=== PATIENT | male | born 1960 | race Caucasian/White ===

== ENCOUNTER 2020-10-16 07:32 | Day surgery (SDC) | payer BC, MEDICARE, OTHER ==
[~2020-10-16] VITALS: Ht 172.7 cm; Wt 90.7 kg
[~2020-10-16 07:32] MED LIST: ALBU0.63 NEB; ALPR2TAB2 PO; BACITRACIN 50,000 UNIT in IV NORMAL SALINE 1000ML BAG 1,000 ML IRR ONE; DILT180C2 PO; DULO60CA6 PO; FAMO-63 PO; FLUT1DIS3 IH; FLUT9.9S NS; GEMF600T8 PO; HYDROmorphone 2 MG/ML VIAL IV PRN; IV RINGERS,LACTATED 1000ML 1,000 ML IV SCH; LACT1CAP29 PO; LEVO125T5 PO; LIDOCAINE 1%/EPI 1:100,000 20 ML VIAL. ONE; LORA-169 PO; MEPE50TA PO; MONT10TA49 PO; MORPHINE SULFATE 2 MG/ML VIAL. IV PRN; MULT1CAP15 PO; OLME20TA17 PO; ONDANSETRON PF 4 MG/2 ML VIAL. IV PRN; PROCHLORPERAZINE 10 MG/2 ML VIAL. IV PRN; ZALE10CA PO; dilaudid CONT INF; fentaNYL PF VIAL 100 MCG/2 ML VIAL IV PRN
[2020-10-16] MEDS ORDERED: METH-38 PO (08:19)
[2020-10-16] MEDS ORDERED: SUCCINYLCHOLINE 200 MG/10 ML VIAL. ONE (08:20)
[2020-10-16] MEDS ORDERED: fentaNYL PF VIAL 100 MCG/2 ML VIAL ONE ×2 (08:21→10:29)
[2020-10-16] MEDS ORDERED: ROCURONIUM 50 MG/5 ML VIAL. ONE (08:21)
[2020-10-16 08:44] LABS: PROTHROMBIN TIME PATIENT 13.8 SEC (11.7-14.0)
[2020-10-16] MEDS ORDERED: SEVOFLURANE 61 TO 120 MINUTES. IH ONE (09:28)
[2020-10-16] MEDS ORDERED: ONDANSETRON PF 4 MG/2 ML VIAL. ONE (09:28)
[2020-10-16] MEDS ORDERED: LIDOCAINE 2% PF 5 ML VIAL. ONE (09:28)
[2020-10-16] MEDS ORDERED: DEXAMETHASONE SOD PHOS 20 MG/5 ML VIAL. ONE (09:28)
[2020-10-16] MEDS ORDERED: PROPOFOL 10 MG/ML (20ML) VIAL. IV ONE (09:28)
[2020-10-16] MEDS ORDERED: ePHEDrine PF IN SALINE 50 MG/10 ML SYRINGE. IV ONE (09:28)
--- NOTE | 2020-10-16 10:10 | PDOC ---
BRIEF OPERATIVE NOTE Date: Oct 16, 2020 Pre-Op Diagnosis chronic pain, intrathecal pain pump due for exchange secondary to normal usage Post-Op Diagnosis same Procedure Performed removal and exchange of intrathecal pump apparatus, extraction of medication from old pump with replacement of medication into new pump (4.5mL) Surgeon Saumya Marble Chip Terrazzo Worker none Anesthesia Type: General Blood Loss 5mL Specimens Obtained explant old pump apparatus Findings intact intrathecal tubing, functional new pump Complications none apparent PATRICIO MCKEON MD Oct 16, 2020 10:10
[2020-10-16] MEDS ORDERED: traMADol 50 MG TABLET PO ONE (11:30)
[2020-10-16 11:40] VITALS: BP 118/40
[2020-10-16] MEDS ORDERED: traMADol 50 MG TABLET PO PRN (11:45)
--- NOTE | 2020-10-16 16:29 | OP ---
DATE OF SURGERY: 10/16/2020 SURGEON: Iron Mckeon MD [employer] SUPERVISOR: None. PROCEDURE: Removal and replacement of intrathecal pain pump apparatus from the right abdomen with an aspiration of medication from the old pump and placement of medication in to the new pump. ANESTHESIA: General. COMPLICATIONS: None. INDICATIONS FOR THE PROCEDURE: The patient is a 60-year-old male, presents who has chronic pain and derived significant benefit from an intrathecal pain pump. The pump apparatus in the abdomen is at end of life secondary to normal usage. He presents for removal and replacement of the pump. The pump is a [employer] pump system. DESCRIPTION OF PROCEDURE: After informed consent was obtained, the patient was brought into the operating room. He was placed in the supine position. All pressure points were checked and padded appropriately. The patient had a previous right abdominal incision. This area was prepped and draped in the usual sterile fashion. Ancef was utilized for prophylaxis. Incision was reopened with a 15 blade scalpel. Monopolar electrocautery was utilized to dissect the underlying soft tissues to the pump apparatus. Pump apparatus was gently freed from the scar tissue pocket. The tubing was noted to be intact with an intact connection. An appropriate size syringe was utilized to access the port. The superior aspect of the pump to draw approximately 1 mm fluid through primary tubing. Once this was complete, the pump was disconnected from the tubing and on the backtable, 4.5 mL of medication was removed from the old pump. This was subsequently placed into the new pump apparatus without difficulty. New pump apparatus once ready was reconnected to the tubing which was noted to have brisk flow of fluid and widely patent. This was connected according to childhood development teacher's specification and no leaks, kinks, or cracks were noted in the tubing and the connection appeared to be non-leaking and fully attached. The new pump was placed into the prior scar tissue pocket in the same orientation as the old pump. It was tacked down with silk suture to the posterior wall of the capsule. The wound was generously irrigated with antibiotic irrigation prior to final closure. The capsule was then reapproximated with 0 Vicryl in a simple interrupted fashion. The subcutaneous tissues reapproximated with 2-0 Vicryl in interrupted inverted fashion and the skin was reapproximated with 4-0 Vicryl in a running subcuticular fashion. Mastisol and Steri-Strips were applied. Wound was dressed with Telfa, 4 x 4 and Tegaderm. At the end of procedure, all needle and sponge counts were correct and the patient was extubated in the operating room and taken to recovery in stable condition. There were no intraprocedural complications apparent. IRON MCKEON MD DR: ANDREW/tisha JOB#: [id number] / [id number] NILSON
[2020-10-17 01:08] LABS: HEMOGLOBIN A1C 5.3 % (4.8-5.6)
== END 2020-10-16 12:38 | disposition home or self-care (01) ==
LOC: SURG 07:32
PROVIDERS: ATTEND Neurological Surgery
DX: G89.21 Chronic pain due to trauma (principal); M54.5 Low back pain; I10 Essential (primary) hypertension; K21.9 Gastro-esophageal reflux disease without esophagitis; M19.90 Unspecified osteoarthritis, unspecified site; E66.9 Obesity, unspecified; G47.30 Sleep apnea, unspecified; E03.9 Hypothyroidism, unspecified; F41.9 Anxiety disorder, unspecified; F32.9 Major depressive disorder, single episode, unspecified; J45.909 Unspecified asthma, uncomplicated; Z79.899 Other long term (current) drug therapy; Z98.890 Other specified postprocedural states; Z87.891 Personal history of nicotine dependence; Z88.1 Allergy status to other antibiotic agents; Z88.8 Allergy status to other drugs, medicaments and biological substances; Z85.828 Personal history of other malignant neoplasm of skin
CPT/HCPCS: 36415; 62362; 83036; 85610; 85730; C1772; C1787; J0330; J0690; J1100; J2405; J2704; J3010; J3490; J7030; J7120

== ENCOUNTER → 2021-03-12 | Outpatient (CLI) | payer OTHER ==
[~2021-03-12] MED LIST changes: -BACITRACIN 50,000 UNIT in IV NORMAL SALINE 1000ML BAG 1,000 ML IRR ONE; +GEMF600T20 PO; -GEMF600T8 PO; -HYDROmorphone 2 MG/ML VIAL IV PRN; -IV RINGERS,LACTATED 1000ML 1,000 ML IV SCH; -LIDOCAINE 1%/EPI 1:100,000 20 ML VIAL. ONE; +METH-38 PO; -MORPHINE SULFATE 2 MG/ML VIAL. IV PRN; +ONDA4TAB7 PO; -ONDANSETRON PF 4 MG/2 ML VIAL. IV PRN; -PROCHLORPERAZINE 10 MG/2 ML VIAL. IV PRN; +TEST200V3 IM; -fentaNYL PF VIAL 100 MCG/2 ML VIAL IV PRN
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
== END | disposition home or self-care (01) ==
LOC: PNCL 10:19
PROVIDERS: ATTEND Anesthesiology
DX: M54.2 Cervicalgia (principal); M54.5 Low back pain; I10 Essential (primary) hypertension; G47.30 Sleep apnea, unspecified; M19.90 Unspecified osteoarthritis, unspecified site; J45.909 Unspecified asthma, uncomplicated; K21.9 Gastro-esophageal reflux disease without esophagitis; E03.9 Hypothyroidism, unspecified; F41.9 Anxiety disorder, unspecified; F32.9 Major depressive disorder, single episode, unspecified; Z85.828 Personal history of other malignant neoplasm of skin; Z79.899 Other long term (current) drug therapy; Z98.890 Other specified postprocedural states; Z88.1 Allergy status to other antibiotic agents; Z88.8 Allergy status to other drugs, medicaments and biological substances
CPT/HCPCS: 99205; G0463

== ENCOUNTER → 2021-05-29 | Outpatient (CLI) | payer BC, MEDICARE, OTHER ==
[2021-05-28 15:00] VITALS: BP 128/80
[~2021-05-29] MED LIST changes: +AMOX1TAB61 PO; +DULO30CA2 PO; +KETO10TA PO; -LACT1CAP29 PO; +LACT1CAP37 PO
--- NOTE | 2021-05-29 10:27 | PDOC ---
Progress Note - Pain Clinic Date of Service: DOS: DATE: 05/29/21 TIME: 10:21 Diagnosis: Dx: Cervical radiculopathy with cervical degenerative disease and cervical postlaminectomy syndrome Lumbar radiculopathy with lumbar degenerative disease lumbar spinal stenosis History or Present Illness: HPI: 61-year-old male returns for follow-up last seen March 12, 2021 patient has had some unusual potential side effects and is suspicious that his intrathecal pump is causing these as his last medication refill hydromorphone was done at outside facility and he reports that the medicine was sent from a [place] pharmacy and is been suspicious of it since that time also since last refill he has had flushing and erythematous changes on the chest and torso as well as the upper extremities which were not present by his report prior to last medication change. We discussed this with he and his spouse over the phone several weeks ago and decided to have the medication changed with a local pharmacy that we had good long relationship with and will change the medication from the pump today. Still hydromorphone 1 mg/mL at the same rate without changing any other factors with his pump or PTM but just to get a known medication from a trusted source exchanged for the pump. Patient reports of having headaches also pain base of neck and shoulders upper extremities and radicular fashion also low back pain bilateral lower extremity pain. Patient recently had his cholecystectomy performed which was yesterday and now presents as an outpatient for pump eval uation and exchange with refill and reprogramming. Physical Exam: VS: Blood pressure is 145/93 pulse 87 respirations 18 temperature 98.6 degrees Fahrenheit 5 feet 10 inches weight is 206 pounds PE: PHYSICAL EXAMINATION: GENERAL: The patient is awake, alert, oriented, appropriate, very pleasant demeanor, patient Kumpe by his spouse HEENT: Shows normocephalic, atraumatic. Extraocular movements are intact and symmetrical. Oral cavity: Mucous membranes moist and pink. Dentition is intact. NECK: Shows anterior throat supple without palpable lymphadenopathy noted. Swallow reflex symmetrical. CHEST: Shows normal on inspection. Breath sounds are clear bilaterally, distant but no rales or rhonchi. HEART: Shows S1, S2 clear. No murmurs auscultated. ABDOMEN: Soft, nontender, nondistended, obese with easily palpable intrathecal pump in the right lower quadrant with well-healed surgical scar noted. Patient has bandages from recent laparoscopic cholecystectomy sites are clean and dry without erythema and without drainage. No palpable organomegaly is noted. No rebound or guarding demonstrated. BACK: Shows spine grossly in the midline. Normal-appearing cervical lordotic curvature. Cervical paraspinous muscles show symmetrical inspection with palpation shows mild tenderness inferior aspect the cervical paraspinous musculature as well as into the superior medial trapezius bilaterally rotation motion shows full rotation of the cervical spine both laterally as well as full extension full forward flexion without significant increase in pain. There is slightly increased thoracic kyphosis, some minor flattening of the lumbar lordotic curvature. Lumbar paraspinous muscles show symmetrical on inspection, on palpation shows some moderate tenderness diffusely throughout the upper, middle and lower distribution of the paraspinous muscles without specific trigger points, without radiation of pain. The patient has good rotational motion of the lumbar spine, both laterally as well as extension and flexion without significant difficulty. EXTREMITIES: Lower extremities show deep tendon reflexes 1+ in the patellar and tendo calcaneus tendons. Motor exam is 4 on a scale of 5 with right dorsiflexion, extension, quadriceps and hamstring flexion and 4/5 on the left. Peripheral pulses are 1+ posterior tibial. No peripheral edema is noted bilaterally. Lower extremities are warm and dry to touch, equal in color and appearance. Upper extremity show deep tendon reflexes 2+ in the bicep and triceps tendons, motor exam strong with concrete puddler strength rated 5 out of 5 as is bicep and tricep flexion. Peripheral pulses are 2+ radial. Shoulder shrug strong and intact without loss of strength on resistance bilaterally. SKIN: Shows warm and dry, good turgor. No edema. No sores, rashes or bruising throughout. Procedure: Procedure: Options were discussed with the patient patient spouse with coming him his visit today. We will proceed with intrathecal pump refill and exchange of medication hydromorphone 1 mg/mL. 7 cc of old medication was withdrawn from the pump and 20 cc new medication was replaced. Patient will follow up in approximately 2 weeks with progress note at that time as patient lives a great distance from the office was asked to call with a progress note in about 2 weeks. Patient also having significant radicular symptoms from the cervical spine and we discussed possible cervical epidural steroid injection in the future as well. Patient will allow time for the recent surgical procedure to heal and then reconsider this as well. Medication Injected: Med Injected: Under sterile prep and drape patient's abdomen was prepped over the intrathecal pump, using a 22-gauge noncutting [employer]tronic brand needle the pump was entered without difficulty. Aspiration showed removal of 7 cc of old medication which was discarded. 20 cc of new medication containing hydromorphone 1 mg/mL was then replaced. Needle was withdrawn and sterile bandage was applied;pump was then reprogrammed for volume as well as alarm settings and PTM reprogrammed as well. Patient tolerated procedure well had no complications. Condition at Discharge: Condition at Discharge: Condition at discharge stable, patient alert the procedure well and had no complications. ZAINA LEONG MD May 29, 2021 10:27
--- NOTE | 2021-05-29 10:28 | PDOC4 ---
Procedure Note: Procedure Note: Patient was consented for intrathecal pump refill and reprogramming. Risk were discussed including but not limited to bleeding infection possibility of extravasation of medication and resuscitative measures necessary as well as poor results regarding pain control. Patient understands wished to proceed. Under sterile prep and drape patient's abdomen was prepped over the intrathecal pump, using a 22-gauge noncutting [employer] brand needle the pump was entered without difficulty. Aspiration showed removal of 7 cc of old medication which was discarded. 20 cc of new medication containing hydromorphone 1 mg/mL was then replaced. Needle was withdrawn and sterile bandage was applied;pump was then reprogrammed for volume as well as alarm settings and PTM reprogrammed as well. Patient tolerated procedure well had no complications. ZAINA LEONG MD May 29, 2021 10:28
== END | disposition home or self-care (01) ==
LOC: PNCL 09:08
PROVIDERS: ATTEND Anesthesiology
DX: M50.10 Cervical disc disorder with radiculopathy, unspecified cervical region (principal); M96.1 Postlaminectomy syndrome, not elsewhere classified; M48.061 Spinal stenosis, lumbar region without neurogenic claudication; M51.16 Intervertebral disc disorders with radiculopathy, lumbar region; J45.909 Unspecified asthma, uncomplicated; G47.30 Sleep apnea, unspecified; M19.90 Unspecified osteoarthritis, unspecified site; F41.9 Anxiety disorder, unspecified; F32.9 Major depressive disorder, single episode, unspecified; I10 Essential (primary) hypertension; E03.9 Hypothyroidism, unspecified; Z79.899 Other long term (current) drug therapy; Z98.890 Other specified postprocedural states; Z85.828 Personal history of other malignant neoplasm of skin; Z88.6 Allergy status to analgesic agent; Z88.8 Allergy status to other drugs, medicaments and biological substances
CPT/HCPCS: 95991

== ENCOUNTER → 2021-11-11 | Outpatient (CLI) | payer OTHER ==
[2021-05-28 15:00] VITALS: BP 128/80
[~2021-11-11] MED LIST changes: -DULO60CA6 PO; +DULO60CA7 PO
--- NOTE | 2021-11-11 15:42 | PDOC ---
Progress Note - Pain Clinic Date of Service: DOS: DATE: 11/11/21 TIME: 15:36 Diagnosis: Dx: Cervical radiculopathy with cervical degenerative disease and cervical postlaminectomy syndrome Lumbar radiculopathy lumbar degenerative disease lumbar spinal stenosis Intrathecal pump therapy History or Present Illness: HPI: 61-year-old male returns for follow-up status post intrathecal pump management with hydromorphone. Patient reports about 60% improvement overall but still significant pain in the low back and mid back patient reports also pain in the base of the neck and shoulders somewhat worse on the right than the left. Patient reports is a 9 on scale 10 is worse over the past week 6 on average 5 its least is a [address] aching sharp and dull tight and shooting in the base the neck and shoulders more on the right than the left tingling burning in the mid and low back as well can be constant severe in the neck and shoulders which is his chief complaint. Patient reports no loss of motor function no bowel or bladder incontinence but significant fatigability in the right upper extremity with repetitive motions reaching over his head repetitive lifting or bending and reaching forward with the upper extremities. Patient reports also low back pain but no significant side effects with the intrathecal medication currently. Patient reports no bowel or bladder incontinence. Physical Exam: VS: Blood pressure is 136/68 pulse 76 respirations 18 temperature 98.7 F height 5 feet 10 inches weight is 203 pounds PE: PHYSICAL EXAMINATION: GENERAL: The patient is awake, alert, oriented, appropriate, very [facility], patient [place] by his HEENT: Shows normocephalic, atraumatic. Extraocular movements are intact and symmetrical. Oral cavity: Mucous membranes moist and pink. Dentition is intact. NECK: Shows anterior throat supple without palpable lymphadenopathy noted. Swallow reflex symmetrical. CHEST: Shows normal on inspection. Breath sounds are clear bilaterally, no rales or rhonchi. HEART: Shows S1, S2 clear. No murmurs auscultated. ABDOMEN: Soft, nontender, nondistended, obese. No palpable organomegaly is noted. Easily palpable intrathecal pump is noted the right lower quadrant with well-healed surgical scarring noted. BACK: Shows spine grossly in the midline. Normal-appearing cervical lordotic curvature. Cervical paraspinous muscles show symmetrical inspection palpation is diffusely tender throughout the upper middle lower decrease the paraspinous muscles bilaterally but without significant radiation without trigger points. Patient with full rotation motion cervical spine with lateral as well as extension flexion without significant difficulty as well. There is slightly increased thoracic kyphosis, some flattening of the lumbar lordotic curvature. Lumbar paraspinous muscles show symmetrical on inspection, on palpation shows some moderate tenderness diffusely throughout the upper, middle and lower distribution of the paraspinous muscles without specific trigger points, without radiation of pain. The patient has good rotational motion of the lumbar spine, both laterally as well as extension and flexion without significant difficulty. No tenderness over the spinous processes, sacrum or sacroiliac regions. EXTREMITIES: Lower extremities show deep tendon reflexes 1+ in the patellar and tendo calcaneus tendons. Motor exam is 4 on a scale of 5 with right dorsiflexion, extension, quadriceps and hamstring flexion and 4/5 on the left. Peripheral pulses are 1+ posterior tibial. No peripheral edema is noted bilaterally. Lower extremities are warm and dry to touch, equal in color and appearance. Upper extremity show deep tendon reflexes 2+ in the bicep triceps tendons, motor exam strong with dock operations supervisor strength rated 5 out of 5 as is bicep and tricep flexion. Shoulder shrug strong intact without loss of strength on resistance as is abduction of the shoulder 90 degrees bilaterally. SKIN: Shows warm and dry, good turgor. No edema. No sores, rashes or bruising throughout. Procedure: Procedure: Options discussed with patient. Patient's old chart was reviewed his current medication regimen updated current review of systems updated today as well. We will analyze patient's intrathecal pump and make adjustments to the pump rate as well as the PTM setting today to deliver less medicine per bolus from PTM as well as over a longer period of time from 0.0020 g 2.0010 mg and instead of over 2 minutes time, we will lengthen that to a formatted bolus time. Patient was given instruction as well as covered side effects again to be aware of with medication and follow-up in approximately 1 week as scheduled. Medication Injected: Med Injected: Intrathecal pump analysis and reprogramming Condition at Discharge: Condition at Discharge: Condition at discharge is stable. ZAINA LEONG MD Nov 11, 2021 15:42
== END | disposition home or self-care (01) ==
LOC: PNCL 13:39
PROVIDERS: ATTEND Anesthesiology
DX: M50.10 Cervical disc disorder with radiculopathy, unspecified cervical region (principal); M96.1 Postlaminectomy syndrome, not elsewhere classified; M51.16 Intervertebral disc disorders with radiculopathy, lumbar region; M48.061 Spinal stenosis, lumbar region without neurogenic claudication; I10 Essential (primary) hypertension; J45.909 Unspecified asthma, uncomplicated; G47.30 Sleep apnea, unspecified; M19.90 Unspecified osteoarthritis, unspecified site; E03.9 Hypothyroidism, unspecified; F41.9 Anxiety disorder, unspecified; F32.9 Major depressive disorder, single episode, unspecified; Z85.828 Personal history of other malignant neoplasm of skin; Z79.899 Other long term (current) drug therapy; Z98.890 Other specified postprocedural states; Z88.6 Allergy status to analgesic agent; Z88.8 Allergy status to other drugs, medicaments and biological substances
CPT/HCPCS: 99212; G0463

== ENCOUNTER → 2021-11-18 | Outpatient (CLI) | payer OTHER ==
[2021-05-28 15:00] VITALS: BP 128/80
[~2021-11-18] MED LIST changes: +IOHEXOL 180 MG/ML 10 ML VIAL. ONE; +methylPREDNISolone ACETATE 40 MG/ML VIAL. ONE; +methylPREDNISolone ACETATE 80 MG/ML VIAL. ONE
--- NOTE | 2021-11-18 14:18 | PDOC ---
Progress Note - Pain Clinic Date of Service: DOS: DATE: 11/18/21 TIME: 14:15 Diagnosis: Dx: Cervical radiculopathy with cervical degenerative disc disease and cervical postlaminectomy syndrome Lumbar radiculopathy with lumbar degenerative disc disease and lumbar spinal stenosis History or Present Illness: HPI: 61-year-old male returns for follow-up status post intrathecal pump reprogramming and PTM reprogramming on November 11 patient has significant pain base of neck and shoulders left greater than right at this time with pain with repetitive motions reaching over his head with his hands reaching forward weightbearing disturbing sleep significantly patient reports of pain in the base of neck and shoulders left side of the head rating to the arms the bilateral as well as in the superior chest and upper back mid back aching sharp and shooting tingling burning stabbing can be constant severe with activity. Patient reports it is a 9 on scale of 10 is worse over the past week 8 on average 6 at its least is 8 today. Patient reports no new motor or sensory deficits and is doing better after adjustment of his intrathecal pump and PTM settings. Physical Exam: VS: Blood pressure is 102/62 pulse 78 respirations 18 temperature 98.0 F height is 5 foot 10 inches weight is 203 pounds PE: PHYSICAL EXAMINATION: GENERAL: The patient is awake, alert, oriented, appropriate, very pleasant in demeanor, patient Kum[place] by his spouse HEENT: Shows normocephalic, atraumatic. Extraocular movements are intact and symmetrical. Oral cavity: Mucous membranes moist and pink. Dentition is intact. NECK: Shows anterior throat supple without palpable lymphadenopathy noted. Swallow reflex symmetrical. CHEST: Shows normal on inspection. Breath sounds are clear bilaterally, distant but no rales or. HEART: Shows S1, S2 clear. No murmurs auscultated. ABDOMEN: Soft, nontender, nondistended. No palpable organomegaly is noted. BACK: Shows spine grossly in the midline. Normal-appearing cervical lordotic c urvature. Cervical paraspinous muscles show symmetrical inspection, on palpation some moderate tenderness diffusely throughout the upper middle lower decrease the paraspinous muscle slightly more on the left than the right as well as into the superior medial trapezius more tender on the left than the right as well but without trigger points or atrophy hypertrophy or asymmetry. Patient does show good full rotation motion cervical spine both laterally as well as extension flexion all slightly guarded does complete full rotation. There is increased thoracic kyphosis, some flattening of the lumbar lordotic curvature. Lumbar paraspinous muscles show symmetrical on inspection, on palpation shows some moderate tenderness diffusely throughout the upper, middle and lower distribution of the paraspinous muscles, but without specific trigger points, without radiation of pain. The patient has good rotational motion of the lumbar spine, both laterally as well as extension and flexion without significant difficulty. No tenderness over the spinous processes, sacrum or sacroiliac regions. EXTREMITIES: Lower extremities show deep tendon reflexes 1+ in the patellar and tendo calcaneus tendons. Motor exam is 4 on a scale of 5 with right dorsiflexion, extension, quadriceps and hamstring flexion and 4/5 on the left. Peripheral pulses are 1+ posterior tibial. No peripheral edema is noted bilaterally. Lower extremities are warm and dry to touch, equal in color and appearance. Upper extremity show deep tendon reflexes 2+ in the bicep tricep tendons, motor exam strong with 5 5 claims representative strength bicep and tricep flexion peripheral pulses are 2+ radial. SKIN: Shows warm and dry, good turgor. No edema. No sores, rashes or bruising throughout. Procedure: Procedure: Options were discussed with patient. Patient's old chart was reviewed as his current medication regimen updated current review systems updated today as well. We will proceed with a cervical epidural steroid injection today with fluorosco pic guidance. Risks were discussed including but not limited to: Bleeding, infection, possibility of epidural hematoma and subsequent neurological compromise, dural puncture, headaches, spinal cord and/or nerve damage, side effects of steroid medication, and poor results regarding pain control. Patient understands and wished to proceed. Patient will return to clinic in approximate 2 weeks for follow-up, was counseled as return appointment, typical, and side effect to be aware of. Medication Injected: Med Injected: Procedure cervical epidural steroid injection at the C6-7 level, using local anesthetic under sterile prep and drape using C-arm fluoroscopic guidance under local anesthesia medications injected ;120 mg Depo-Medrol +5 mL normal saline and 2 mL contrast; condition at discharge is stable patient tolerated procedure well. and had no complications Condition at Discharge: Condition at Discharge: Condition at discharge stable, patient tolerated the procedure well and had no complications. ZAINA LEONG MD Nov 18, 2021 14:18
--- NOTE | 2021-11-18 14:19 | PDOC4 ---
Procedure Note: ICD 10 Code: ICD 10 Code: M54.12 M50.30 722.81 Procedure Note: Patient was consented for cervical epidural steroid injection with fluoroscopic guidance. Risks were discussed including but not limited to: Bleeding, infection, possibility of epidural hematoma and subsequent neurological compromise, dural puncture, headaches, spinal cord and/or nerve damage, side effects of steroid medication, and poor results regarding pain control. Patient understands and wished to proceed. Procedure cervical epidural steroid injection at the C6-7 level, using local a nesthetic under sterile prep and drape using C-arm fluoroscopic guidance under local anesthesia medications injected ;120 mg Depo-Medrol +5 mL normal saline and 2 mL contrast; condition at discharge is stable patient tolerated procedure well. and had no complications ZAINA LEONG MD Nov 18, 2021 14:19
== END | disposition home or self-care (01) ==
LOC: PNCL 12:55
PROVIDERS: ATTEND Anesthesiology
DX: M50.10 Cervical disc disorder with radiculopathy, unspecified cervical region (principal); M96.1 Postlaminectomy syndrome, not elsewhere classified; M51.16 Intervertebral disc disorders with radiculopathy, lumbar region; M48.061 Spinal stenosis, lumbar region without neurogenic claudication; I10 Essential (primary) hypertension; J45.909 Unspecified asthma, uncomplicated; G47.30 Sleep apnea, unspecified; E03.9 Hypothyroidism, unspecified; M19.90 Unspecified osteoarthritis, unspecified site; F41.9 Anxiety disorder, unspecified; F32.9 Major depressive disorder, single episode, unspecified; Z85.828 Personal history of other malignant neoplasm of skin; Z79.899 Other long term (current) drug therapy; Z98.890 Other specified postprocedural states; Z88.6 Allergy status to analgesic agent; Z88.8 Allergy status to other drugs, medicaments and biological substances
CPT/HCPCS: 62321; J1030; J1040; Q9965

== ENCOUNTER → 2021-12-23 | Outpatient (CLI) | payer OTHER ==
[2021-05-28 15:00] VITALS: BP 128/80
[~2021-12-23] MED LIST changes: +BUPIVACAINE MPF 0.25% 10 ML VIAL. ONE; -IOHEXOL 180 MG/ML 10 ML VIAL. ONE; -methylPREDNISolone ACETATE 40 MG/ML VIAL. ONE
--- NOTE | 2021-12-23 13:01 | PDOC ---
Progress Note - Pain Clinic Date of Service: DOS: DATE: 12/23/21 TIME: 12:56 Diagnosis: Dx: Cervical radiculopathy with cervical degenerative disease and cervical postlaminectomy syndrome Lumbar radiculopathy with lumbar degenerative disease lumbar spinal stenosis Myofascial pain History or Present Illness: HPI: 61-year-old male returns for follow-up status post cervical epidural steroid injection November 18 patient did very well about 75% improvement in the neck and shoulder pain his chief complaint today however is low back and right sided posterior hip pain as well patient reports is disturbing his sleep is getting worse over time rated as a 10 on scale 10 is worst over the past week 9 on average 7 its least is a 9 today patient ports sharp and shooting stabbing in the right posterior hip and low back with some radiating pain in the leg occasionally on the lateral thigh mostly in the low back itself worse with standing walking changing positions and again is waking up sleep frequently. Patient reports no bowel or bladder incontinence. We also discussed his intrathecal pump as patient is feeling that he is getting a "red man syndrome" from the medication he would like to eventually wean down off of that and to have the pump removed. We had discussed this on a previous visit as well and also will discuss spinal cord stimulator trial which we will get him authorized for as we are weaning down the intrathecal pump. Physical Exam: VS: Blood pressure is 110/56 pulse 96 respirations 18 temperature 97.0 F height is 5 foot 10 inches weight is 207 pounds PE: PHYSICAL EXAMINATION: GENERAL: The patient is awake, alert, oriented, appropriate, very pleasant demeanor, patient accompanied by his spouse HEENT: Shows normocephalic, atraumatic. Extraocular movements are intact and symmetrical. Oral cavity: Mucous membranes moist and pink. Dentition is int act. NECK: Shows anterior throat supple without palpable lymphadenopathy noted. Swallow reflex symmetrical. CHEST: Shows normal on inspection. Breath sounds are clear bilaterally, distant but no rales or rhonchi auscultated. HEART: Shows S1, S2 clear. No murmurs auscultated. ABDOMEN: Soft, nontender, nondistended. No palpable organomegaly is noted. No rebound or guarding demonstrated. BACK: Shows spine grossly in the midline. Normal-appearing cervical lordotic curvature. There is slightly increased thoracic kyphosis, some minor flattening of the lumbar lordotic curvature. Lumbar paraspinous muscles show symmetrical on inspection, on palpation shows some moderate tenderness diffusely throughout the upper, middle and lower distribution of the paraspinous muscles but significant tenderness in the right lower thoracic paraspinous posterior right lumbar paraspinous muscular and right gluteus and the superior aspect as compared to the left with multiple regions of trigger point very firm ropelike musculature on the right side only very tender to palpation but without specific radiation. The patient has good rotational motion of the lumbar spine, both laterally as well as extension and flexion without significant difficulty. EXTREMITIES: Lower extremities show deep tendon reflexes 1+ in the patellar and tendo calcaneus tendons. Motor exam is 4 on a scale of 5 with right dorsiflexion, extension, quadriceps and hamstring flexion and 4/5 on the left. Peripheral pulses are 1+ posterior tibial. No peripheral edema is noted bilaterally. Lower extremities are warm and dry to touch, equal in color and appearance. Upper extremity show deep tendon reflexes 2+ in the bicep tricep tendons, motor exam is 5 out of 5 with biceps triceps and energy efficient site manager strength bilaterally. SKIN: Shows warm and dry, good turgor. No edema. No sores, rashes or bruising throughout. Procedure: Procedure: Options were discussed with patient. Patient chart was reviewed his current medication regimen updated current review of systems updated today as well. We will proceed with trigger point injections of the right thoracic paraspinous posterior right lumbar paraspinous muscles or right gluteus musculature with risk discussed including but not limited to bleeding infection possibility of intravascular injection and sequelae spread of local anesthetic and numbness side effects of steroid medication and poor results regarding pain control. Patient understands wished to proceed. Patient will return to clinic in [facility] 2 weeks for follow-up, we will discuss further options of decreasing intrathecal pump as well as spinal cord stimulation. Medication Injected: Med Injected: Patient in prone position under sterile prep and drape patient's right thoracic paraspinous posterior right lumbar paraspinous posterior right gluteus musculature triggerpoints were identified using 25-gauge needle after negative aspiration each injection total of 6 cc 0.25% bupivacaine and total of 40 mg Depo-Medrol was used. Patient tolerated the procedure well and had no complications. Condition at Discharge: Condition at Discharge: Condition at discharge is stable, patient tolerated the procedure well and had no complications. ZAINA LEONG MD Dec 23, 2021 13:01
--- NOTE | 2021-12-23 13:02 | PDOC4 ---
Procedure Note: ICD 10 Code: ICD 10 Code: M60.89 Procedure Note: Patient was consented for trigger point injections. Risk were discussed including but not limited to bleeding infection possibility of intravascular injection sequelae spread local anesthetic numbness side effects of steroid medication portals regarding pain control. Patient understands and wished to proceed. Patient in prone position under sterile prep and drape patient's right thoracic paraspinous posterior right lumbar paraspinous posterior right gluteus musculature triggerpoints were identified using 25-gauge needle after negative aspiration each injection total of 6 cc 0.25% bupivacaine and total of 40 mg Depo-Medrol was used. Patient tolerated the procedure well and had no complications. ZAINA LEONG MD Dec 23, 2021 13:02
== END | disposition home or self-care (01) ==
LOC: PNCL 11:27
PROVIDERS: ATTEND Anesthesiology
DX: M50.10 Cervical disc disorder with radiculopathy, unspecified cervical region (principal); M79.18 Myalgia, other site; M96.1 Postlaminectomy syndrome, not elsewhere classified; M51.16 Intervertebral disc disorders with radiculopathy, lumbar region; M48.061 Spinal stenosis, lumbar region without neurogenic claudication; I10 Essential (primary) hypertension; J45.909 Unspecified asthma, uncomplicated; G47.30 Sleep apnea, unspecified; E03.9 Hypothyroidism, unspecified; F41.9 Anxiety disorder, unspecified; F32.9 Major depressive disorder, single episode, unspecified; Z85.828 Personal history of other malignant neoplasm of skin; Z79.899 Other long term (current) drug therapy; Z98.890 Other specified postprocedural states; Z88.8 Allergy status to other drugs, medicaments and biological substances
CPT/HCPCS: 20553; J1040; J3490

== ENCOUNTER → 2022-01-06 | Outpatient (CLI) | payer OTHER ==
[2021-05-28 15:00] VITALS: BP 128/80
[~2022-01-06] MED LIST changes: +AMLO10TA4 PO; -BUPIVACAINE MPF 0.25% 10 ML VIAL. ONE; +BUTA1TAB23 PO; +DULO30CA44 PO; +IOHEXOL 180 MG/ML 10 ML VIAL. ONE
--- NOTE | 2022-01-06 12:24 | PDOC ---
Progress Note - Pain Clinic Date of Service: DOS: DATE: 01/06/22 TIME: 12:18 Diagnosis: Dx: Cervical radiculopathy with cervical degenerative disease and cervical postlaminectomy syndrome Lumbar radiculopathy with lumbar degenerative disc disease and lumbar spinal stenosis Myofascial pain History or Present Illness: HPI: 61-year-old male returns for follow-up status post intrathecal pump adjustment December 23, 2021 patient reports that he is doing better but is noticing some back pain which is more noticeable now after the pump was adjusted downward by approximately 10% patient currently running at a rate of 5.00 to 3 mg/day hydromorphone. Patient status post trigger point injections of the bilateral trapezius lumbar and gluteus musculature on his last visit with near 1% im provement for 2 weeks by patient's report. Patient reports his chief plan today is neck and bilateral shoulder and upper extremity pain especially on the left side. Patient reports has become more noticeable with radiating pain into the upper extremities shoulder as well as arm in the forearm on the left without motor loss but significant fatigability with repetitive motion. Patient reports a 7 on scale 10 is worse over the past week 5 on average 4 at its least and, is a 5 today. The patient describes the pain as aching sharp shooting, burning stabbing and cramping as well as shooting in the upper extremity especially on the left side. Patient reports no loss of motor function with significant fatigability with the pain and with repetitive motions especially on the left once again. Physical Exam: VS: Blood pressure is 102/66 pulse 75 respirations 18 temperature 98.2 F weight is 206 pounds. PE: PHYSICAL EXAMINATION: GENERAL: The patient is awake, alert, oriented, appropriate, very pleasant in [facility], patient Kumpe by his . HEENT: Shows normocephalic, atraumatic. Extraocular movements are intact and symmetrical. Oral cavity: Mucous membranes moist and pink. Dentition is intact. NECK: Shows anterior throat supple without palpable lymphadenopathy noted. Swallow reflex symmetrical. CHEST: Shows normal on inspection. Breath sounds are clear bilaterally, distant but no rales or rhonchi auscultated. HEART: Shows S1, S2 clear. No murmurs auscultated. ABDOMEN: Soft, nontender, nondistended. No palpable organomegaly is noted. BACK: Shows spine grossly in the midline. Normal-appearing cervical lordotic curvature. There is mildly increased thoracic kyphosis, some moderate flattening of the lumbar lordotic curvature. Lumbar paraspinous muscles show symmetrical on inspection, on palpation shows some moderate tenderness diffusely throughout the upper, middle and lower distribution of the paraspinous muscles, without radiation of pain. The patient has good rotational motion of the lumbar spine, both laterally as well as extension and flexion without significant difficulty. EXTREMITIES: Lower extremities show deep tendon reflexes 1 in the patellar and tendo calcaneus tendons. Motor exam is 4 on a scale of 5 with right dorsiflexion, extension, quadriceps and hamstring flexion and 4/5 on the left. Peripheral pulses are 1+ posterior tibial. No peripheral edema is noted bilaterally. Lower extremities are warm and dry to touch, equal in color and appearance. Upper extremities show deep tendon reflexes 2+ in the bicep tricep tendons, motor exam is strong with garment inspector strength rated 5 out of 5 as is bicep and tricep flexion bilaterally. Shoulder shrug is strong and intact without loss of strength on resistance bilaterally. SKIN: Shows warm and dry, good turgor. No edema. No sores, rashes or bruising throughout. Procedure: Procedure: Options were discussed with the patient. Patient's old chart was reviewed his current medication regimen updated current review of systems updated today as well. We will proceed with a cervical epidural steroid injection today with fluoroscopic guidance. Risks were discussed including but not limited to: Bleeding, infection, possibility of epidural hematoma and subsequent neurological compromise, dural puncture, headaches, spinal cord and/or nerve damage, side effects of steroid medication, and poor results regarding pain control. Patient understands and wished to proceed. Patient return to the clinic in approximately 2 weeks for follow-up as scheduled. Patient has psychology interview with Dr. Dora Berrios tomorrow, for clearance for spinal cord stimulator trial, and will notify this office once that interview is completed so that we may move forward with preauthorization requests. Medication Injected: Med Injected: Procedure cervical epidural steroid injection at the C6-7 level, using local anesthetic under sterile prep and drape using C-arm fluoroscopic guidance under local anesthesia medications injected ;120 mg Depo-Medrol +5 mL normal saline and 2 mL contrast; condition at discharge is stable patient tolerated procedure well. and had no complications Condition at Discharge: Condition at Discharge: Condition at discharge is stable, paced tolerated the procedure well and had no complications. ZAINA LEONG MD Jan 06, 2022 12:24
--- NOTE | 2022-01-06 12:25 | PDOC4 ---
Procedure Note: ICD 10 Code: ICD 10 Code: M54.12 M50.30 722.81 M60.89 Procedure Note: Patient was consented for cervical epidural steroid injection with fluoroscopic guidance. Risks were discussed including but not limited to: Bleeding, infection, possibility of epidural hematoma and subsequent neurological compromi se, dural puncture, headaches, spinal cord and/or nerve damage, side effects of steroid medication, and poor results regarding pain control. Patient understands and wished to proceed. Procedure cervical epidural steroid injection at the C6-7 level, using local anesthetic under sterile prep and drape using C-arm fluoroscopic guidance under local anesthesia medications injected ;120 mg Depo-Medrol +5 mL normal saline and 2 mL contrast; condition at discharge is stable patient tolerated procedure well. and had no complications ZAINA LEONG MD Jan 06, 2022 12:25
== END | disposition home or self-care (01) ==
LOC: PNCL 11:10
PROVIDERS: ATTEND Anesthesiology
DX: M50.10 Cervical disc disorder with radiculopathy, unspecified cervical region (principal); M96.1 Postlaminectomy syndrome, not elsewhere classified; M54.12 Radiculopathy, cervical region; M51.16 Intervertebral disc disorders with radiculopathy, lumbar region; M48.061 Spinal stenosis, lumbar region without neurogenic claudication; M79.18 Myalgia, other site; I10 Essential (primary) hypertension; G47.30 Sleep apnea, unspecified; M19.90 Unspecified osteoarthritis, unspecified site; E03.9 Hypothyroidism, unspecified; J45.909 Unspecified asthma, uncomplicated; F41.9 Anxiety disorder, unspecified; F32.9 Major depressive disorder, single episode, unspecified; Z85.828 Personal history of other malignant neoplasm of skin; Z79.899 Other long term (current) drug therapy; Z98.890 Other specified postprocedural states; Z88.6 Allergy status to analgesic agent; Z88.8 Allergy status to other drugs, medicaments and biological substances
CPT/HCPCS: 62321; J1040; Q9965

== ENCOUNTER → 2022-02-18 | Outpatient (CLI) | payer OTHER ==
[2021-05-28 15:00] VITALS: BP 128/80
[~2022-02-18] MED LIST changes: -IOHEXOL 180 MG/ML 10 ML VIAL. ONE; +LIDOCAINE 1% PF 2 ML VIAL. ONE; +VALIUM10 MG PO; -methylPREDNISolone ACETATE 80 MG/ML VIAL. ONE
--- NOTE | 2022-02-18 16:25 | PDOC ---
Progress Note - Pain Clinic Date of Service: DOS: DATE: 02/18/22 TIME: 16:15 Diagnosis: Dx: Lumbar radiculopathy with lumbar degenerative disc disease and lumbar spinal stenosis Cervical radiculopathy with cervical degenerative disc disease and cervical postlaminectomy syndrome Myofascial pain History or Present Illness: HPI: 61-year-old male returns for follow-up status post cervical epidural steroid injection x2 most recently January 06, 2022. Patient reports did very well we had preauthorize patient for spinal cord stimulator temporary leads placement trial and patient like to proceed with that today still having significant pain in the low back and bilateral lower extremities worse on the left than the right leg but present bilaterally posterior gluteus posterior thigh posterior calf is worse with walking standing changing positions significant fatigability with both lower extremities patient has intrathecal pump currently but is having some significant flushing and nausea side effects from the hydromorphone that is in the pump currently. We discussed in the past that the stimulator was a good option for him and is controlling the pain adequately enough we may eventually wean down the pump. Patient reports no new motor or sensory deficits no bowel or bladder incontinence currently patient rates his pain as a 9 on scale 10 is worst 9 on average 8 its least is a 9 today. Describes a sharp and tight in the back shooting the legs tingling and burning the leg stabbing unbearable can be severe and constant as well with activity. Patient reports it wakes him from sleep but every 2 hours at night he must reposition or take pain medication to get back to sleep. Physical Exam: VS: Blood pressure is 125/74 pulse 98 respirations 18 temperature 97.8 F height 5 feet 10 inches weight is 200 pounds. PE: PHYSICAL EXAMINATION: GENERAL: The patient is awake, alert, oriented, appropriate, very pleasant in demeanor, patient companied by his . HEENT: Shows normocephalic, atraumatic. Extraocular movements are intact and symmetrical. Oral cavity: Mucous membranes moist and pink. Dentition is intact. NECK: Shows anterior throat supple without palpable lymphadenopathy noted. Swallow reflex symmetrical. CHEST: Shows normal on inspection. Breath sounds are clear bilaterally, distant but no rales rhonchi or wheezes auscultated. HEART: Shows S1, S2 clear. No murmurs auscultated. ABDOMEN: Soft, nontender, nondistended. No palpable organomegaly is noted. BACK: Shows spine grossly in the midline. Normal-appearing cervical lordotic curvature. Cervical paraspinous muscles show symmetrical inspection, palpation some moderate tenderness diffusely bilaterally diffusely without significant radiation. Patient shows guarded rotation of motion especially with extension and right lateral rotation but full forward flexion performed without significant difficulty. There is slightly increased thoracic kyphosis, some minor flattening of the lumbar lordotic curvature. Lumbar paraspinous muscles s how symmetrical on inspection, on palpation shows some moderate tenderness diffusely throughout the upper, middle and lower distribution of the paraspinous muscles without specific trigger points, without radiation of pain. The patient has good rotational motion of the lumbar spine, both laterally as well as extension and flexion without significant difficulty. No tenderness over the spinous processes, sacrum or sacroiliac regions. EXTREMITIES: Lower extremities show deep tendon reflexes 1+ in the patellar and tendo calcaneus tendons. Motor exam is 4 on a scale of 5 with right dorsiflexion, extension, quadriceps and hamstring flexion and 4/5 on the left. Peripheral pulses are 1+ posterior tibial. No peripheral edema is noted bilaterally. Lower extremities are warm and dry. SKIN: Shows warm and dry, good turgor. No edema. No sores, rashes or bruising throughout. Procedure: Procedure: Options discussed with the patient. Patient's old chart was reviewed his current medication regimen updated review of systems updated today as well. We will proceed with spinal cord stimulator trial lead placements with fluoroscopic guidance. Risks were discussed including but not limited to: Bleeding, infection, possibility of epidural hematoma and subsequent neurological compromise, dural puncture, headaches, spinal cord and/or nerve damage, and poor results regarding pain control. Patient understands and wished to proceed. Patient will return to clinic in approximate 1 week for follow-up removal of spinal cord stimulator temporary lead and reassessment of patient's pain level at that time. Medication Injected: Med Injected: Under sterile prep and drape patient in prone position using C-arm fluoroscopic guidance patient's lumbar spine was identified and vertebral levels were counted did put external marker on the T8 level. This time the lumbar spine was revisualized and using 1% lidocaine, the area over the L4-5 level was anesthetized and then using a 14-gauge Policard needle with stylette was entered to the epidural space at the L3-4 level using a paramedian approach to the right with preservative-free normal saline geic-rh-dbkqncchns technique aspiration was noted to be negative and using direct fluoroscopy visualization spinal cord stimulator lead was then advanced without significant resistance in the midline and confirmed posterior with both AP and lateral views, and advanced to the superior endplate of the T8 vertebral level superimposed with the superior spinal cord stimulator electrode lead. Fluoroscopy was used in a lateral view to verify posterior placement in the epidural space at this point as well. At this time the needle and stylette were removed with intermittent fluoroscopic visualization maintaining that the lead had not moved during this process and this was confirmed. This time 1% lidocaine was used to anesthetize the skin next to the insertion sites of the stimulator wire and using a 2-0 silk were then sutured in place. Mastisol and Tegaderm was then applied as well as reinforcing tape and gauze. Patient was transferred to the recovery area under his own power walking without difficulty and had no immediate complications from the procedure. Stimulation was then carried out with [facility] representatives. Patient will return to the clinic in approximately 1 week for removal of the temporary leads and reassessment of the patient's pain level. Condition at Discharge: Condition at Discharge: Condition at discharge is stable, patient tolerated the procedure well and had no complications. ZAINA LEONG MD Feb 18, 2022 16:25
== END | disposition home or self-care (01) ==
LOC: PNCL 13:11
PROVIDERS: ATTEND Anesthesiology
DX: M51.16 Intervertebral disc disorders with radiculopathy, lumbar region (principal); M48.061 Spinal stenosis, lumbar region without neurogenic claudication; M50.10 Cervical disc disorder with radiculopathy, unspecified cervical region; M96.1 Postlaminectomy syndrome, not elsewhere classified; M79.18 Myalgia, other site; I10 Essential (primary) hypertension; J45.909 Unspecified asthma, uncomplicated; G47.30 Sleep apnea, unspecified; M19.90 Unspecified osteoarthritis, unspecified site; E03.9 Hypothyroidism, unspecified; F41.9 Anxiety disorder, unspecified; F32.9 Major depressive disorder, single episode, unspecified; Z85.828 Personal history of other malignant neoplasm of skin; Z79.899 Other long term (current) drug therapy; Z98.890 Other specified postprocedural states; Z88.8 Allergy status to other drugs, medicaments and biological substances
CPT/HCPCS: 63650; C1897; J3490

== ENCOUNTER → 2022-02-25 | Outpatient (CLI) | payer OTHER ==
[2021-05-28 15:00] VITALS: BP 128/80
[~2022-02-25] MED LIST changes: +HYDROMORPHONE 10 MG/ML ONE; -LIDOCAINE 1% PF 2 ML VIAL. ONE
--- NOTE | 2022-02-25 12:14 | PDOC ---
Progress Note - Pain Clinic Date of Service: DOS: DATE: 02/25/22 TIME: 12:09 Diagnosis: Dx: Lumbar radiculopathy with lumbar degenerative disease and lumbar spinal stenosis Cervical radiculopathy with cervical degenerative disc disease and cervical postlaminectomy syndrome Myofascial pain History or Present Illness: HPI: 61-year-old male returns for follow-up status post intrathecal pump management as well as spinal cord stimulator temporary leads placement 1 week ago. Patient reports he did very well with the temporary leads trial with about 70% improvement in pain in the low back and lower extremities patient is very pleased with his progress patient reports that he was increasing his activity with greater ease and comfort travel with greater ease feeling generally much better sleeping better at night as well. Patient reports that he was having much greater interest in doing things outside the home are generally he is inclined to just stay in bed or in a reclining chair he was wanting to be much more active up and around and felt generally better emotionally as well. Patient reports pain is in the low back is a dull pain now on and off in intens ity patient rates is a 4 to scale 10 is worse over the past with 3 on average 3 to [place] is a 3 today. Patient reports has not been a 3 out of 10 for several years. Patient has intrathecal pump which he is due for refill today as well we will remove patient's stimulator temporary leads and refill patient's intrathecal pump with reprogramming today as well. Physical Exam: VS: Blood pressure is 120/77 pulse 98 respirations 18 temperature 98.3 F height is 5 foot 10 inches PE: PHYSICAL EXAMINATION: GENERAL: The patient is awake, alert, oriented, appropriate, very pleasant in demeanor, patient accompanied by his . HEENT: Shows normocephalic, atraumatic. Extraocular movements are intact and symmetrical. Oral cavity: Mucous membranes moist and pink. Dentition is intact. NECK: Shows anterior throat supple without palpable lymphadenopathy noted. Swallow reflex symmetrical. CHEST: Shows normal on inspection. Breath sounds are clear bilaterally, no rales rhonchi or wheezes auscultated. HEART: Shows S1, S2 clear. No murmurs auscultated. ABDOMEN: Soft, nontender, nondistended. No palpable organomegaly is noted. Easily palpable intrathecal pump in the right lower quadrant with well-healed surgical scar. BACK: Shows spine grossly in the midline. Normal-appearing cervical lordotic curvature. There is slightly increased thoracic kyphosis, some minor flattening of the lumbar lordotic curvature. Lumbar paraspinous muscles show symmetrical on inspection, on palpation shows some moderate tenderness diffusely throughout the upper, middle and lower distribution of the paraspinous muscles, but without specific trigger points, without radiation of pain. The patient has good rotational motion of the lumbar spine, both laterally as well as extension and flexion without significant difficulty. EXTREMITIES: Lower extremities show deep tendon reflexes 1+ in the patellar and tendo calcaneus tendons. Motor exam is 4 on a scale of 5 with right dorsiflexion, extension, quadriceps and hamstring flexion and 4/5 on the left. Peripheral pulses are 1+ posterior tibial. No peripheral edema is noted bilaterally. Lower extremities are warm and dry. SKIN: Shows warm and dry, good turgor. No edema. No sores, rashes or bruising throughout. Procedure: Procedure: Options were discussed with patient. Patient's old chart was viewed as his current medication regimen updated current review of systems updated today as well. We will proceed with intrathecal pump refill and reprogramming today. Risk were discussed including but not limited to bleeding infection possibility of intravascular injection sequelae spread of intrathecal pump medication extravasation with resuscitative measures if necessary as well as poor results regarding pain control. Patient understands wished to proceed. Spinal stimulator temporary leads were removed x1, under sterile technique, with site clean and dry no erythema no drainage. Medication Injected: Med Injected: Under sterile prep and drape patient's abdomen was prepped over the intrathecal pump, using a 22-gauge noncutting Med[employer] brand needle the pump was entered without difficulty. Aspiration showed removal of 4 cc of old medication which was discarded. 20 cc of new medication containing hydromorphone, 1.0 mg/cc was then replaced. Needle was withdrawn and sterile bandage was applied;pump was then reprogrammed for volume as well as alarm settings. Patient tolerated procedure well had no complications. Condition at Discharge: Condition at Discharge: Condition at discharge stable, patient tolerated procedure well and had no complications. We will make arrangements for permanent stimulator system placement. ZAINA LEONG MD Feb 25, 2022 12:14
--- NOTE | 2022-02-25 12:15 | PDOC4 ---
Procedure Note: ICD 10 Code: ICD 10 Code: M54.16 M51.36 M4 8.06 Procedure Note: Patient was consented for intrathecal pump refill and reprogramming. Risk were discussed including but not limited to bleeding infection possibility of intravascular injection sequelae spread of intrathecal medication and sequelae and include resuscitative measures if necessary, as well as poor results regarding pain control. Patient understands wishes to proceed. Under sterile prep and drape patient's abdomen was prepped over the intrathecal pump, using a 22-gauge noncutting Nutmeg brand needle the pump was entered without difficulty. Aspiration showed removal of 4 cc of old medication which was discarded. 20 cc of new medication containing hydromorphone, 1.0 mg/cc was then replaced. Needle was withdrawn and sterile bandage was applied;pump was then reprogrammed for volume as well as alarm settings. Patient tolerated procedure well had no complications. ZAIAN LEONG MD Feb 25, 2022 12:15
== END | disposition home or self-care (01) ==
LOC: PNCL 10:35
PROVIDERS: ATTEND Anesthesiology
DX: M79.18 Myalgia, other site (principal); M51.16 Intervertebral disc disorders with radiculopathy, lumbar region; M48.061 Spinal stenosis, lumbar region without neurogenic claudication; M50.10 Cervical disc disorder with radiculopathy, unspecified cervical region; M96.1 Postlaminectomy syndrome, not elsewhere classified; M19.90 Unspecified osteoarthritis, unspecified site; E03.9 Hypothyroidism, unspecified; I10 Essential (primary) hypertension; J45.909 Unspecified asthma, uncomplicated; G47.30 Sleep apnea, unspecified; F41.9 Anxiety disorder, unspecified; F32.9 Major depressive disorder, single episode, unspecified; Z85.828 Personal history of other malignant neoplasm of skin; Z79.899 Other long term (current) drug therapy; Z98.890 Other specified postprocedural states; Z88.8 Allergy status to other drugs, medicaments and biological substances
CPT/HCPCS: 62369; J1170; 95991

== ENCOUNTER → 2022-03-11 | Outpatient (CLI) | payer OTHER ==
[2021-05-28 15:00] VITALS: BP 128/80
[~2022-03-11] MED LIST changes: -HYDROMORPHONE 10 MG/ML ONE
--- NOTE | 2022-03-11 10:06 | PDOC ---
Progress Note - Pain Clinic Date of Service: DOS: DATE: 03/11/22 TIME: 10:03 Diagnosis: Dx: Lumbar to colopathy with lumbar degenerative disc disease and lumbar spinal stenosis Cervical radiculopathy cervical degenerative disease with cervical postlaminectomy syndrome Myofascial pain History or Present Illness: HPI: 51-year-old male returns for follow-up status post spinal cord stimulator trial with very good results and patient awaiting placement with surgical evaluation but reports significant pain returning the low back and bilateral lower extremities posterior gluteus posterior lateral thigh lateral anterior thighs anteromedial thighs medial lower legs worse on the right left worse with walking standing change positions patient reports an 8 on scale 10 is worse over the past week 6 on average 6 at its least and 8 today patient reports been more sleepy lately and continue with some histamine response with hives and ruborous skin and itching at times but not constantly. Patient reports he has aching and pain in the low back that sharp and shooting in the legs stabbing the leg stabbing in the back tingling in the legs radiating can be severe and unbearable at times patient reports is better with sitting or lying down but wakes him from sleep usually 2-3 times a night most nights patient reports no bowel or bladder incontinence. Patient reports her right hip is most noticeable with walking and standing but the left side is painful as well. Patient reports no loss of motor function but significant fatigability with the right lower extremity with ambulation but not using any assistive devices. Physical Exam: VS: Blood pressure is 106/66 pulse 79 respirations 20 temperature is 91 F weight is 208 pounds. PE: PHYSICAL EXAMINATION: GENERAL: The patient is awake, alert, oriented, appropriate, very pleasant demeanor, patient accompanied by his spouse HEENT: Shows normocephalic, atraumatic. Extraocular movements are intact and symmetrical. Oral cavity: Mucous membranes moist and pink. Dentition is intact. NECK: Shows anterior throat supple without palpable lymphadenopathy noted. Swallow reflex symmetrical. CHEST: Shows normal on inspection. Breath sounds are clear bilaterally, no rales or rhonchi auscultated. HEART: Shows S1, S2 clear. No murmurs auscultated. ABDOMEN: Soft, nontender, nondistended. No palpable organomegaly is noted. BACK: Shows spine grossly in the midline. Normal-appearing cervical lordotic curvature. There is slightly increased thoracic kyphosis, some minor flattening of the lumbar lordotic curvature. Lumbar paraspinous muscles show symmetrical on inspection, on palpation shows some moderate tenderness diffusely throughout the upper, middle and lower distribution of the paraspinous muscles, but without specific trigger points, without radiation of pain. The patient has good rotational motion of the lumbar spine, both laterally as well as extension and flexion with moderate tenderness with all rotation of motion. EXTREMITIES: Lower extremities show deep tendon reflexes 1 in the patellar and tendo calcaneus tendons. Motor exam is 4 on a scale of 5 with right dorsiflexion, extension, quadriceps and hamstring flexion and 4/5 on the left. Peripheral pulses are 1+ posterior tibial. No peripheral edema is noted bilaterally. Lower extremities are warm and dry. SKIN: Shows warm and dry, good turgor. No edema. No sores, rashes or bruising throughout. Procedure: Procedure: Options were discussed with patient. Patient's old chart was reviewed as his current medication regimen updated current review of systems updated today as well. We will proceed with a lumbar epidural steroid injection today with fluoroscopic guidance. Risks were discussed including but not limited to: Ble eding, infection, possibility of epidural hematoma and subsequent neurological compromise, dural puncture, headaches, spinal cord and/or nerve damage, side effects of steroid medication, and poor results regarding pain control. Patient understands and wished to proceed. She will return to clinic in approximately 2 weeks for follow-up, was counseled as to return appointment, activity level, and side effect to be aware of. Medication Injected: Med Injected: Procedure is lumbar epidural steroid injection under local anesthetic using sterile prep and drape at the L4-5 level using C-arm fluoroscopic guidance in both AP and lateral views medications injected is 120 mg methylprednisolone +10mL preservative-free normal saline and 2 mL contrast- condition at discharge is stable patient tolerated procedure well had no complications. Condition at Discharge: Condition at Discharge: Condition at discharge stable, patient tolerated procedure well and had no complications. ZAINA LEONG MD Mar 11, 2022 10:06
--- NOTE | 2022-03-11 10:07 | PDOC4 ---
Procedure Note: ICD 10 Code: ICD 10 Code: M54.16 M51.36 M4 8.06 Procedure Note: Patient was consented for lumbar epidural steroid injection with fluoroscopic guidance. Risks were discussed including but not limited to: Bleeding, infection, possibility of epidural hematoma and subsequent neurological compromise, dural puncture, headaches, spinal cord and/or nerve damage, side effects of steroid medication, and poor results regarding pain control. Patient understands and wished to proceed. Procedure is lumbar epidural steroid injection under local anesthetic using jag rile prep and drape at the L4-5 level using C-arm fluoroscopic guidance in both AP and lateral views medications injected is 120 mg methylprednisolone +10mL preservative-free normal saline and 2 mL contrast- condition at discharge is stable patient tolerated procedure well had no complications. ZAINA LEONG MD Mar 11, 2022 10:07
== END | disposition home or self-care (01) ==
LOC: PNCL 09:11
PROVIDERS: ATTEND Anesthesiology
DX: M51.16 Intervertebral disc disorders with radiculopathy, lumbar region (principal); M48.061 Spinal stenosis, lumbar region without neurogenic claudication; M50.10 Cervical disc disorder with radiculopathy, unspecified cervical region; M96.1 Postlaminectomy syndrome, not elsewhere classified; M79.18 Myalgia, other site; I10 Essential (primary) hypertension; J45.909 Unspecified asthma, uncomplicated; G47.30 Sleep apnea, unspecified; M19.90 Unspecified osteoarthritis, unspecified site; E03.9 Hypothyroidism, unspecified; F41.9 Anxiety disorder, unspecified; F32.9 Major depressive disorder, single episode, unspecified; Z85.828 Personal history of other malignant neoplasm of skin; Z79.899 Other long term (current) drug therapy; Z98.890 Other specified postprocedural states; Z88.8 Allergy status to other drugs, medicaments and biological substances
CPT/HCPCS: 62323

== ENCOUNTER → 2022-03-11 | Outpatient (CLI) | payer OTHER ==
[2021-05-28 15:00] VITALS: BP 128/80
[~2022-03-11] MED LIST changes: +IOHEXOL 180 MG/ML 10 ML VIAL. ONE; +methylPREDNISolone ACETATE 40 MG/ML VIAL. ONE; +methylPREDNISolone ACETATE 80 MG/ML VIAL. ONE
== END | disposition home or self-care (01) ==
LOC: PNCL 09:43
PROVIDERS: ATTEND Anesthesiology
DX: M51.16 Intervertebral disc disorders with radiculopathy, lumbar region (principal); I10 Essential (primary) hypertension; J45.909 Unspecified asthma, uncomplicated; G47.30 Sleep apnea, unspecified; E03.9 Hypothyroidism, unspecified; F41.9 Anxiety disorder, unspecified; F32.9 Major depressive disorder, single episode, unspecified; Z79.899 Other long term (current) drug therapy; Z98.890 Other specified postprocedural states
CPT/HCPCS: 62323; J1030; J1040; Q9965

== ENCOUNTER → 2022-04-24 | Outpatient (CLI) | payer OTHER ==
[2021-05-28 15:00] VITALS: BP 128/80
[~2022-04-24] MED LIST changes: -IOHEXOL 180 MG/ML 10 ML VIAL. ONE; -methylPREDNISolone ACETATE 40 MG/ML VIAL. ONE; -methylPREDNISolone ACETATE 80 MG/ML VIAL. ONE
--- NOTE | 2022-04-24 16:21 | PDOC ---
Progress Note - Pain Clinic Date of Service: DOS: DATE: 04/24/22 TIME: 16:17 Diagnosis: Dx: Lumbar radiculopathy with lumbar degenerative disease lumbar spinal stenosis Cervical radiculopathy with cervical degenerative disease and cervical postlaminectomy syndrome Myofascial pain History or Present Illness: HPI: 62-year-old male returns for follow-up status post recent spinal cord stimulator trial and permanent placement which has not been performed and for evaluation of his intrathecal pump. Patient reports his pain is decreased significantly is a 3 on a scale of 10 on average worst and least is a 3 today patient reports some tingling burning and sharpness in the low back with some tenderness over the left hip where the stimulator generator is also is pain in the base of the neck but very tolerable reports about a 70% improvement overall with a spinal cord stimulator. We discussed decreasing the rate intrathecal pump as he would like to eventually have the pump removed. We also discussed that we will do this very gradually very slowly to avoid any withdrawal symptoms. We decreased the pump rate in October by 10% and we will plan on decreasing by about 10% again today as well. Patient reports doing very well with the stimulator though is very pleased with his results. Battery is maintaining charged without difficulty and again about a 70% reduction in pain thus far. Physical Exam: VS: Blood pressure is 133/69 pulse 60 respirations 18 temperature 98.2 F height is 5 feet 10 inches weight is 210 pounds. PE: PHYSICAL EXAMINATION: GENERAL: The patient is awake, alert, oriented, appropriate, very pleasant in demeanor HEENT: Shows normocephalic, atraumatic. Extraocular movements are intact and symmetrical. Oral cavity: Mucous membranes moist and pink. Dentition is intact. NECK: Shows anterior throat supple without palpable lymphadenopathy noted. Swallow reflex symmetrical. CHEST: Shows normal on inspection. Breath sounds are clear bilaterally. HEART: Shows S1, S2 clear. No murmurs auscultated. ABDOMEN: Soft, nontender, nondistended. No palpable organomegaly is noted. Easily palpable intrathecal pump in the right lower quadrant with well-healed surgical scar noted. BACK: Shows spine grossly in the midline. Normal-appearing cervical lordotic curvature. There is slightly increased thoracic kyphosis, some minor flattening of the lumbar lordotic curvature. Well-healing surgical scars noted in the midline as well as in the superior gluteus with easily palpable spinal cord stimulator generator. EXTREMITIES: Lower extremities show deep tendon reflexes 1+ in the patellar and tendo calcaneus tendons. Motor exam is 4 on a scale of 5 with right dorsiflexion, extension, quadriceps and hamstring flexion and 4/5 on the left. Peripheral pulses are 1 posterior tibial. No peripheral edema is noted bilaterally. Lower extremities are warm and dry to touch, equal in color and appearance. SKIN: Shows warm and dry, good turgor. No edema. No sores, rashes or bruising throughout. Procedure: Procedure: Options discussed with patient and patient spouse who accompanied him at his visit today. We will reduce intrathecal rate by 11% today to a rate of 0.0510 mg per 24 hours. Patient will return to clinic in approximately 2 weeks for reevaluation and potential further reduction at that time. Medication Injected: Med Injected: None Condition at Discharge: Condition at Discharge: Condition at discharge is stable. ZAINA LEONG MD April 24, 2022 16:20
== END | disposition home or self-care (01) ==
LOC: PNCL 14:48
PROVIDERS: ATTEND Anesthesiology
DX: M51.16 Intervertebral disc disorders with radiculopathy, lumbar region (principal); M48.061 Spinal stenosis, lumbar region without neurogenic claudication; M50.10 Cervical disc disorder with radiculopathy, unspecified cervical region; M96.1 Postlaminectomy syndrome, not elsewhere classified; M79.18 Myalgia, other site; J45.909 Unspecified asthma, uncomplicated; G47.30 Sleep apnea, unspecified; E03.9 Hypothyroidism, unspecified; F41.9 Anxiety disorder, unspecified; F32.9 Major depressive disorder, single episode, unspecified; M19.90 Unspecified osteoarthritis, unspecified site; Z85.828 Personal history of other malignant neoplasm of skin; Z79.899 Other long term (current) drug therapy; Z98.890 Other specified postprocedural states
CPT/HCPCS: 99212; G0463